=== PATIENT | female | born 1985 | race Caucasian/White ===

== ENCOUNTER 2016-10-30 23:16 | Emergency (ER) | payer OTHER ==
[~2016-10-30] VITALS: Ht 157.5 cm; Wt 57.0 kg
[2016-10-30 23:33] VITALS: Ht 157.5 cm; Wt 57.0 kg
--- NOTE | 2016-10-31 01:10 | ERD ---
ER Documentation Chief Complaint Date/Time DATE: 10/31/16 TIME: 01:07 Chief Complaint Left knee pain x1 week HPI Patient is a 31-year-old female approximately 11 weeks , who presents the emergency department with left knee pain 1 week. Patient states that she has erythema and warmth to the medial aspect of her knee. Patient states that she has pain when walking. Her current pain level is a 4 out of 10. She describes the pain to be dull and pulsating. She states the pain is episodic. She denies any spreading of the redness. She denies any recent falls or trauma. Patient denies any fever, chills, nausea, vomiting. Patient denies any vaginal bleeding, vaginal discharge, abdominal cramping, pelvic pain. She is receiving [facility] care. ROS All systems reviewed and are negative except as per history of present illness. Medications Home Meds Active Scripts Cephalexin* (Keflex*) 500 Mg Capsule, 500 MG PO QID for 7 Days, CAP Prov:JEFFERSON STAFFORD PA-C 10/31/16 Allergies Allergies: Coded Allergies: No Known Allergy (Unverified , 10/30/16) PMhx/Soc Medical and Surgical Hx: pt denies Medical Hx, pt denies Surgical Hx Hx Alcohol Use: No Hx Substance Use: No Hx Tobacco Use: No (denies) Smoking Status: Never smoker FmHx Family History: No diabetes Physical Exam Vitals Vital Signs Date Time Temp Pulse Resp B/P Pulse Ox O2 Delivery O2 Flow Rate FiO2 10/30/16 23:33 97.7 90 18 100/56 99 Physical Exam GENERAL: Well-developed, well-nourished female. Appears in no acute distress. HEAD: Normocephalic, atraumatic. EYES: Pupils are equally reactive bilaterally. EOMs grossly intact. No conjunctival erythema. ENT: Moist mucous membranes. No uvula deviation. No kissing tonsils. NECK: Supple. No meningismus. Normal range of motion of the neck. LUNG: Clear to auscultation bilaterally. No rhonchi, wheezing, rales or coarse breath sounds. HEART: Regular rate and rhythm. No murmurs, rubs or gallops. EXTREMITIES: Equal pulses bilaterally. No peripheral clubbing, cyanosis or edema. No unilateral leg swelling. NEUROLOGIC: Alert and oriented. Moving all four extremities without any difficulty. Normal speech. Steady gait. SKIN: Normal color. Warm and dry. No rashes or lesions. LEFT KNEE: No deformity, ecchymosis or swelling. Skin intact. Full ROM. No crepitus. Erythema noted to the medial aspect of the knee. Skin is tender to palpation. Some warmth noted. No joint line tenderness. Sensation intact to light touch. Neurovascularly intact. (Able to plantarflex, dorsiflex, konrad foot , invert foot, raise big toe.) 2+ DP and DT pulses. Nontender palpation of the calf or femur. No unilateral swelling. Procedures/MDM ED COURSE: The patient was stable throughout ED course. I kept the patient and/or family informed of laboratory and diagnostic imaging results throughout the ED course. DIAGNOSTIC IMAGING: Read by radiologist. DIAGNOSTIC IMAGING REPORT Patient: JACOB PUGA : 1985 Age: 31 Sex: F MR #: [id number] DOS: 10/31/16 0104 Ordering MD: JEFFERSON STAFFORD PA-C Location: [facility] Room/Bed: PROCEDURE: US DVT. CLINICAL INDICATION: Leg pain TECHNIQUE: Multiple longitudinal and transverse images of the left lower extremity veins were obtained with cintron scale and color Doppler imaging. 2D grayscale measurements with compression, color Doppler flow, and augmentation was performed. The calf veins were interrogated as well. COMPARISON: No prior studies are available for comparison. FINDINGS: The left common femoral, superficial femoral and popliteal veins are normally compressible throughout. Color flow demonstrates normal filling of the vessel. Normal waveforms are visualized and there is normal response to augmentation. The calf veins are visualized and are equally unremarkable. IMPRESSION: 1. No evidence of a deep vein thrombosis involving the left lower extremity. RPTAT: HJES .Lane So MD, MD Date Time Electronically viewed and signed by .Lane So MD, MD on 10/31/2016 01:54 .S/ CC: JEFFERSON STAFFORD PA-C MEDICAL DECISION MAKING: This is a 31 year old female who presents with left knee pain. Patient reports erythema and warmth to the medial aspect of her knee. Patient denied any trauma or falls. Vital signs were reviewed. Patient was afebrile. Patient was not hypoxic. Given that patient is , a doppler ultrasound was obtained. Doppler US showed No evidence of a deep vein thrombosis involving the left lower extremity. Given that patient denied any falls or trauma, xray imaging was not obtained. At this time, the patient's presentation is most consistent with cellulitis. I have a much lower clinical concern for femur fracture, patella fracture, tibial plateau fracture, septic joint, prepatellar bursitis, patellar tendinitis, osteoarthritis, osteomyelitis, thrombophlebitis, DVT or compartment syndrome. At this time, unable to rule out any meniscus and knee ligament injuries. PRESCRIPTIONS: Keflex DISCHARGE: At this time, patient is stable for discharge and outpatient management. RICE therapy and ROM exercises were advised to avoid stiffness. I have instructed the patient to follow-up with his/her primary care physician in 1-2 days. I have discussed with the patient the possibility of needing to see an commodity specialist for further workup and imaging if the pain persists. I have instructed the patient to promptly return to the ER for any new or worsening symptoms including increased pain, swelling, redness, warmth or fever. The patient and/or family expressed understanding of and agreement with this plan. All questions were answered. Home care instructions were provided. Departure Diagnosis: Primary Impression: Cellulitis Site of cellulitis: unspecified site Qualified Code: L03.90 - Cellulitis, unspecified cellulitis site Additional Impression: Knee contusion Encounter type: initial encounter Laterality: left Qualified Code: S80.02XA - Contusion of left knee, initial encounter Condition: Stable Patient Instructions: Cellulitis Referrals: [facility] YOU HAVE RECEIVED A MEDICAL SCREENING EXAM AND THE RESULTS INDICATE THAT YOU DO NOT HAVE A CONDITION THAT REQUIRES URGENT TREATMENT IN THE EMERGENCY DEPARTMENT. FURTHER EVALUATION AND TREATMENT OF YOUR CONDITION CAN WAIT UNTIL YOU ARE SEEN IN YOUR DOCTORS OFFICE WITHIN THE NEXT 1-2 DAYS. IT IS YOUR RESPONSIBILITY TO MAKE AN APPOINTMENT FOR FOLOW-UP CARE. IF YOU HAVE A PRIMARY DOCTOR --you should call your primary doctor and schedule an appointment IF YOU DO NOT HAVE A PRIMARY DOCTOR YOU CAN CALL OUR PHYSICIAN REFERRAL HOTLINE AT IF YOU CAN NOT AFFORD TO SEE A PHYSICIAN YOU CAN CHOSE FROM THE FOLLOWING COMMUNITY CLINICS [facility] [address] [facility] [address] [facility] [facility] [address] [facility] [address] [facility] [address] [facility]. [facility] [address] [facility]. [facility] YOU HAVE RECEIVED A MEDICAL SCREENING EXAM AND THE RESULTS INDICATE THAT YOU DO NOT HAVE A CONDITION THAT REQUIRES URGENT TREATMENT IN THE EMERGENCY DEPARTMENT. FURTHER EVALUATION AND TREATMENT OF YOUR CONDITION CAN WAIT UNTIL YOU ARE SEEN IN YOUR DOCTORS OFFICE WITHIN THE NEXT 1-2 DAYS. IT IS YOUR RESPONSIBILITY TO MAKE AN APPOINTMENT FOR FOLOW-UP CARE. IF YOU HAVE A PRIMARY DOCTOR --you should call your primary doctor and schedule and appointment IF YOU DO NOT HAVE A PRIMARY DOCTOR YOU CAN CALL OUR PHYSICIAN REFERRAL HOTLINE AT . IF YOU CAN NOT AFFORD TO SEE A PHYSICIAN YOU CAN CHOSE FROM THE FOLLOWING [facility] INSTITUTIONS: [facility] [address] [place] [address] [address] [place] [address] [facility] [address] [place] [address] [facility] [place] [address] [facility] [address] [place], [place] [id number] OFFICE FAX AMAURI AMADOR [address] [place] [address] [address] [facility] [address] [place], [place] [phone] THERESA LARRY [address] [facility], [address] [address] [address] [place], [place] [phone] [facility] [address] [place], [place] [id number] [address] [facility] [id number] - [place] P[address]RON [address], [facility] [id number] HERNANDEZ, DANIELITO [address] [facility] [address], [facility] [phone] RAGINI BELCHERME [address] [place] [address] Additional Instructions: Call your primary care doctor/OBGYN TOMORROW for an appointment during the next 1-2 days.See the doctor sooner or return here if your condition worsens before your appointment time. JEFFERSON STAFFORD PA-C Oct 31, 2016 01:10
--- NOTE | 2016-10-31 01:54 | RADRPT ---
PROCEDURE: US DVT. CLINICAL INDICATION: Leg pain TECHNIQUE: Multiple longitudinal and transverse images of the left lower extremity veins were obta ined with cintron scale and color Doppler imaging. 2D grayscale measurements with compression, color D oppler flow, and augmentation was performed. The calf veins were interrogated as well. COMPARISON: No prior studies are available for comparison. FINDINGS: The left common femoral, superficial femoral and popliteal veins are normally compressible throughou t. Color flow demonstrates normal filling of the vessel. Normal waveforms are visualized and there is normal response to augmentation. The calf veins are visualized and are equally unremarkable. IMPRESSION: 1. No evidence of a deep vein thrombosis involving the left lower extremity. RPTAT: HJES .Lane So MD, MD Date Time Electronically viewed and signed by .Lane So MD, MD on 10/31/2016 01:54 .S/
[2016-10-31] MEDS ORDERED: CEPH-443 PO (02:22)
== END 2016-10-31 02:32 | disposition home or self-care (01) ==
LOC: FTE 23:16
DX: O99.711 Diseases of the skin and subcutaneous tissue complicating pregnancy, first trimester (principal); L03.116 Cellulitis of left lower limb; S80.02XA Contusion of left knee, initial encounter; X58.XXXA Exposure to other specified factors, initial encounter; Y92.9 Unspecified place or not applicable; Z3A.11 11 weeks gestation of pregnancy
CPT/HCPCS: 93971; Z7502